=== PATIENT | female | born 1955 | race Caucasian/White ===

== ENCOUNTER 2017-01-23 14:20 | Inpatient (IN) | payer OTHER ==
[~2017-01-23] VITALS: Ht 157.5 cm; Wt 51.3 kg
--- NOTE | 2017-01-23 14:27 | NUR ---
PT PLACED TO RM 5
--- NOTE | 2017-01-23 14:27 | NUR ---
PT SIB DR DING FOR N/V, FEELING TIRED AND WEAK. PT STATES SHE HAS BEEN IN BED SINCE LAST FRIDAY. BP IN TRIAGE 81/56
--- NOTE | 2017-01-23 14:46 | ED GENERAL ADULT ---
History of Present Illness General Chief Complaint: General Adult Stated Complaint: LOW BP Source: patient Exam Limitations: no limitations Allergies Coded Allergies: No Known Allergies (01/23/17) Reconcile Medications Acetaminophen (Mapap) (Unknown Strength) CAPSULE (Unknown Dose) PO ONCE PAIN (Reported) Atorvastatin Calcium 20 MG TABLET 1 TAB PO DAILY CHOLESTEROL (Reported) Lisinopril/Hydrochlorothiazide (Lisinopril-Hctz 10-12.5 MG Tab) 10 MG-12.5 MG TABLET 1 TAB PO DAILY BP (Reported) Triage Note: PT SIB DR DING FOR N/V, FEELING TIRED AND WEAK. PT STATES SHE HAS BEEN IN BED SINCE LAST FRIDAY. BP IN TRIAGE 81/56 Triage Nurses Notes Reviewed? yes Onset: Gradual Duration: getting worse Timing: recent history Injury Environment: home Severity: severe Severity Numbers: 9 No Modifying Factors: none HPI: Patient is a 61-year-old female with past medical history of hypertension who presents to emergency with a 10 day history of generalized weakness and fatigue and not feeling well and low energy. Patient states an last 7 days she's had 2 episodes of bilious emesis however nothing in the past 2 days. Last bowel movement was within the last 24 hours no blood no melena noted. Patient denies any fevers chills chest pain and arm pain jaw pain current nausea or vomiting, abdominal pain vaginal bleeding or vaginal discharge hematuria or dysuria. Denies any leg swelling hemoptysis, cough shortness of breath here patient does state she gets lightheaded upon getting up and mild physical exertion. Patient states last colonoscopy was within last 10 years no acute findings. (NESSA ALEJANDRO,ANGIE) Vital Signs & Intake/Output Vital Signs & Intake/Output Vital Signs Date Time Temp Pulse Resp B/P Pulse O2 O2 Flow FiO2 Ox Delivery Rate 01/23 1913 97.0 80 18 105/59 99 Room Air 01/23 1900 78 102/62 01/23 1850 80 110/57 01/23 1820 96.9 82 18 110/58 98 Room Air 01/23 1755 98.7 74 16 95/51 94 Room Air 01/23 1710 97.3 70 18 88/58 99 Room Air 01/23 1633 74 18 83/56 99 Room Air 01/23 1601 97.0 68 18 84/48 96 Nasal Cannula 01/23 1531 74 84/57 03/30 1506 94 Room Air 01/23 1505 97.1 76 20 89/53 94 Room Air 01/23 1455 78 72/60 01/23 1425 97.0 110 20 81/56 90 Room Air Past History Travel History Traveled to [place] past 21 day No Medical History Any Pertinent Medical History? see below for history Cardiovascular: hypertension, hyperlipidemia Surgical History Surgical History: non-contributory Psychosocial History What is your primary language Angolan Tobacco Use: Quit >30 days ago ETOH Use: occasional use Illicit Drug Use: denies illicit drug use Family History Hx Contributory? No (ANGIE REYNOLDS) Review of Systems Review of Systems Constitutional: Reports: see HPI, malaise, weakness. EENTM: Reports: no symptoms. Respiratory: Reports: no symptoms. Cardiovascular: Reports: no symptoms. GI: Reports: see HPI. Genitourinary: Reports: no symptoms. Musculoskeletal: Reports: no symptoms. Skin: Reports: no symptoms. Neurological/Psychological: Reports: no symptoms. Hematologic/Endocrine: Reports: no symptoms. Immunologic/Allergic: Reports: no symptoms. All Other Systems: Reviewed and Negative (ANGIE REYNOLDS) Physical Exam Physical Exam General Appearance: no apparent distress, alert, comfortable Rectal: normal exam, normal rectal tone, heme negative stool Comments: Well-developed well-nourished person in no acute distress HEENT: Normal EENT exam, extraocular motion intact, no nystagmus. Pupils equally round and reactive to light and accommodation. Nose is atraumatic. External auditory canal and Tympanic membranes clear. Pharynx normal. No swelling or edema. Neck: Supple, no lymphadenopathy, normal range of motion without pain or tenderness Back: Nontender, no CVA tenderness. Cardiovascular: Regular rate and rhythms no murmurs rubs or gallops, normal JVP Respiratory: Chest nontender. No respiratory distress.breath sounds clear to auscultation bilaterally Abdomen: Soft, nontender nondistended, no appreciable organomegaly. Normal bowel sounds. No ascites Extremity: No edema, no calf tenderness to palpation, normal and equal pulses. Neuro: Alert oriented x3, motor sensory normal, Skin: No appreciable rash on exposed skin, skin is warm and dry. Psych: Mood and affect is normal, memory and judgment is normal. Core Measures ACS in differential dx? No CVA/TIA Diagnosis: No Severe Sepsis Present: No Septic Shock Present: No (ANGIE REYNOLDS) Progress Differential Diagnoses I considered the following diagnoses in my evaluation of the patient: [Cancer, anemia, GI bleed, hypotension, dehydration,RENAL ARTERY STENOSIS, CINDA, ] Diagnostic Imaging: Viewed by Me: Radiology Read, CT Scan. Radiology Impression: no acute abnormality, no fracture Initial ED EK BPM NORMAL SINUS RHYTHM Comments: PATIENT: KIANA HOANG PRESENT AGE: 61 PATIENT ACCOUNT NO: [id number] : 53 LOCATION: ER ORDERING PHYSICIAN: ANGIE ALEJANDRO SERVICE DATE: 01/23/17153 EXAM TYPE: US - US-RENAL/KIDNEY EXAMINATION: US RETROPERITONEAL COMPLETE (RENAL) CLINICAL INFORMATION: Renal failure. COMPARISON: CT from today TECHNIQUE: Real-time imaging of the kidneys and bladder. FINDINGS: RIGHT KIDNEY: 9.1 x 5 x 4.3 cm (SAG x AP x TRV). The kidney is normal in size, contour, and echogenicity. Renal cortical thickness is normal. No calculi or focal parenchymal lesions. No hydronephrosis. LEFT KIDNEY: 9.7 x 5.1 x 4.7 cm (SAG x AP x TRV). The kidney is normal in size, contour, and echogenicity. Renal cortical thickness is normal. No calculi or focal parenchymal lesions. No hydronephrosis. BLADDER: Partially distended. Bilateral ureteral jets are demonstrated. Prevoid bladder volume is 62 mL. IMPRESSION: Unremarkable appearance of the kidneys.. DICTATED BY: DAVID HENRY,KESHA DATE/TIME DICTATED:01/23/171744 FIRE CLAIMS ADJUSTER:GEOFF PATIENT: KIANA HOANG PRESENT AGE: 61 PATIENT ACCOUNT NO: [id number] : 53 LOCATION: [facility] ORDERING PHYSICIAN: ANGIE ALEJANDRO SERVICE DATE: 01/23/17160 EXAM TYPE: CAT - CT ABD & PELVIS W/O IV CONTRAS EXAMINATION: CT ABDOMEN AND PELVIS WITHOUT CONTRAST CLINICAL INFORMATION: Decreased urine output. Acute kidney insufficiency and hypertension. COMPARISON: None TECHNIQUE: Multidetector volumetric imaging was performed from the superior aspect of the liver through the pubic symphysis. Sagittal and coronal reformatted images were obtained on the technologist's workstation. DLP: 239.65 mGy-cm FINDINGS: LUNG BASES: Small, 0.3 cm noncalcified nodule within the left lower lobe (image 16, series 3). LIVER, GALLBLADDER, AND BILIARY TREE: Unremarkable. PANCREAS: Unremarkable. SPLEEN: Unremarkable. ADRENAL GLANDS: Unremarkable. KIDNEYS AND URETERS: Kidneys have normal size, cortical thickness and attenuation. No nephrolithiasis or hydroureteronephrosis. BLADDER: Urinary bladder is nearly completely empty. No evidence of bladder wall thickening or bladder calculus. GASTROINTESTINAL TRACT: Stomach is unremarkable. Loops of bowel are normal in caliber. Incidentally noted is submucosal fat deposition within the colon; this can represent normal variation and does not necessarily indicate remote inflammatory bowel disease. No ascites or pneumoperitoneum. ABDOMINAL WALL: Small, fat-containing umbilical hernia measures 1 cm wide. LYMPH NODES: No pathologic sized lymph nodes within the abdomen or pelvis. VASCULAR: Abdominal aorta is normal in caliber. PELVIC VISCERA: A well-circumscribed 4.3 x 4.5 x 4.7 cm structure of fat attenuation of the left ovary (dermoid cyst) is noted. No pelvic free fluid. OSSEOUS STRUCTURES: Mild levocurvature of the lumbar spine. The visualized lower thoracic and lumbar vertebra have normal height and alignment. No suspicious bone lesions. IMPRESSION: 1. No evidence of urolithiasis or urinary tract obstruction. 2. There is a 4.3 x 4.5 x 4.7 cm dermoid cyst of the left ovary. 3. Small, 0.3 cm nodule within the left lower lobe. Based on updated Fleischner Society guidelines, chest CT follow-up is not required for a low risk patient and, also, is not typically recommended for nodules of this size in a high risk patient. (NESSA ALEJANDRO,ANGIE) Plan of Care: Orders Procedure Date/time Status BASIC ELECTROLYTES PLUS BUN&CR 01/24 0000 Active LACTIC ACID 01/23 2010 Active Pathway - chart 01/23 1857 Active Patient Data 01/23 1855 Active Admit to inpatient 01/23 1852 Active Pathway - chart 01/23 1848 Active CIWA 01/23 1848 Active Pathway - chart 01/23 1823 Active House Staff 01/23 1823 Active Patient Data 01/23 1823 Active Code Status 01/23 182 Active LACTIC ACID 01/23 1710 Complete Add-on Test (ER Only) 01/23 1610 Active URINE LYTES, SPOT 01/23 1539 Complete URINALYSIS 01/23 1539 Complete EKG 01/23 1504 Active ARTERIAL BLOOD GAS (GEN) 01/23 1502 Active Add-on Test (ER Only) 01/23 1502 Active FingerStick- Glucose 01/23 1454 Active Intake & Output 01/23 1453 Active LIPASE 01/23 1450 Complete LACTIC ACID 01/23 1450 Complete AMYLASE 01/23 1450 Complete COMPREHENSIVE METABOLIC PANEL 01/23 1442 Complete CBC WITHOUT DIFFERENTIAL 01/23 1442 Complete VTE Mechanical Prophylaxis 01/23 UNK Active Current Medications Sig/Tiffany Start time Last Medication Dose Stop Time Status Admin Heparin Sodium 5,000 UNIT Q8 01/23 2200 AC (Porcine) Acetaminophen 650 MG Q6P PRN 01/23 190 AC (Tylenol) Lorazepam 1 MG Q2P PRN 01/23 1900 AC (Ativan) Oxycodone HCl 10 MG Q6P PRN 01/23 190 AC (Roxicodone) Oxycodone/ 1 TAB Q6P PRN 01/23 190 AC Acetaminophen (Percocet) Folic Acid 1 MG DAILY 01/23 184 AC (Folic Acid) 01/25 1001 Multivitamins 1 TAB DAILY 01/23 184 AC (Theragran Vitamins) Thiamine HCl 100 MG DAILY 01/23 184 AC (Vitamin B1) 01/25 1001 Atorvastatin Calcium 20 MG 1700 01/23 184 AC (Lipitor) Laboratory Tests 01/23/17 1800: Lactic Acid 2.1 01/23/171756: Urine Color YEL, Urine Clarity CLDY H, Urine pH 6.0, Ur Specific [place] 1.015, Urine Protein 30 H, Urine Ketones NEG, Urine Nitrite NEG, Urine Bilirubin NEG@ ICTO, Urine Urobilinogen 0.2, Ur Leukocyte Esterase LARGE H, Ur Microscopic SEDIMENT EXAMINED, Urine RBC RARE, Urine WBC 50-75 H, Ur Epithelial Cells MOD H, Urine Bacteria MOD H, Urine Hemoglobin SMALL H, Urine Glucose NEG 01/23/17 1757: Ur Random Creatinine 174.7, Ur Random Sodium 50, Ur Random Potassium 13.8, Fraction Sodium Excret 2.8 H 01/23/17 1545: pH 7.31 L, pCO2 21 L, pO2 126 H, HCO3 10 L, ABG O2 Sat (Measured) 97.0, P-50 (Temp Corrected) N, Carboxyhemoglobin 0.2 L, O2 Concentration % R/A, Temperature 97.1, Phlebotomy Draw Site LEFT RADIAL 01/23/17 1450: Anion Gap 35 H, Estimated GFR 3 L, BUN/Creatinine Ratio 9.4, Glucose 170 H, Lactic Acid 4.8 H, Calcium 10.9 H, Total Bilirubin 0.7, AST 22, ALT 31, Alkaline Phosphatase 90, Total Protein 9.1 H, Albumin 5.1 H, Globulin 4.0, Albumin/Globulin Ratio 1.3, Amylase 92, Lipase 508 H, CBC w Diff NO MAN DIFF REQ, RBC 4.82, MCV 94.0, MCH 31.5 H, RDW 12.5, MPV 9.2, Gran % 80.5 H, Lymphocytes % 11.1 L, Monocytes % 6.6, Eosinophils % 1.2, Basophils % 0.6, Absolute Granulocytes 6.2, Absolute Lymphocytes 0.8 L, Absolute Monocytes 0.5, Absolute Eosinophils 0.1, Absolute Basophils 0, PUBS MCHC 33.5 Patient initially was in no apparent distress however showed concerns of hypotension initially which 2 peripheral lines were accessed for IV administration of fluid resuscitation which patient did have improvement of hypotension. Patient does have critical findings of acute kidney injury which in which nephrology was paged. Patient had unremarkable CT scan finding and renal ultrasound finding however patient did have lactic acidosis however with IV fluid resuscitation patient's repeat lactic acid was improved. Discuss critical findings with patient who agrees with disposition and plan of being admitted for concerns of acute renal failure (ANGIE REYNOLDS) Departure Departure Disposition: STILL A PATIENT Condition: Critical Clinical Impression Primary Impression: CINDA (acute kidney injury) Secondary Impressions: Dehydration, Hypotension, Lactic acidosis Referrals: CLARENCE STOKES MD (PCP/Family) Departure Forms: Customer Survey General Discharge Information Admission Note Spoke With: LUCINA JOYCE MD Documentation of Exam: Documentation of any treatments & extenuating circumstances including Concerns Regarding Discharge (functional status, medication knowledge or non-compliance, living conditions, etc.) that warrant an admission rather than observation: [ Discussed patient with Dr. JOYCE who agrees with admission for concerns of acute kidney injury lactic acidosis and hypotension. Patient requires IV fluid resuscitation, FLUID IN/OUTS, repeat labs nephrology consultation and further evaluation treatment of critical findings. Outpatient treatment at this time would be medically harmful.] (ANGIE REYNOLDS) PA/CLUTCH OPERATOR Co-Sign Statement Statement: ED Attending supervision documentation- [X] I saw and evaluated the patient. I have also reviewed all the pertinent lab results and diagnostic results. I agree with the findings and the plan of care as documented in the PA's/CLUTCH OPERATOR's documentation. [] I have reviewed the ED Record and agree with the PA's/CLUTCH OPERATOR's documentation. [] Additions or exceptions (if any) to the PAs/CLUTCH OPERATOR's note and plan are summarized below: [] (RUBY HENRY,YAMILA Bolden) Critical Care Note Critical Care Note Critical Care Time: 30-74 min (ANGIE REYNOLDS)
--- NOTE | 2017-01-23 14:56 | NUR ---
PT TO ROOM, BP 72/60 HR 78, 2 IV LINES PLACED AND 1 LITER NS INFUSING WIDE OPEN PER ORDER, PT COMPLAINS OF 10 DAYS OF FEELING VERY WEAK, VOMITTED X 2 IN THE 10 DAYS AND STATES THAT IT WAS ALL BILE , DENIES EVER HAVING ABD PAIN AND DENIES AT THIS TIME. PT GUIAC NEGATIVE, LAST BM THIS AM AND LOOSE, DENIES BLOOD IN STOOL. BP 90/53 AT THIS TIME. O2 SAT 92 % ON RA DENIES SOB/CP, NSR ON MONITOR. PT UNABLE TO VOID AT THIS TIME AND STATES THAT SHE HAS ONLY BEENVOIDING ABOUT 1 TIME A DAY THE PAST FEW DAYS DUE TO NO APPETITE AND NOT DRINKING FLUIDS WELL. PT STATES THAT SHE DID TAKE HER BP MED THIS AM, BUT DID NOT TAKE YESTERDAY DUE TO SHE WAS NOT FEELING WELL. DENIES DIZZINESS WITH CHANGE OF POSITION AND STATES THAT SHE ONLY FEELS WEAK. PT WENT TO HER PMD THIS AM AND HE WAS THE ONE THAT TOLD HER TO COME TO ER
[2017-01-23 15:06] LABS: ABSOLUTE BASOPHIL COUNT 0 /CUMM (0.0-0.2); ABSOLUTE EOSINOPHIL COUNT 0.1 /CUMM (0.0-0.7); ABSOLUTE GRANULOCYTE CT 6.2 /CUMM (1.4-6.5); ABSOLUTE LYMPH COUNT 0.8 /CUMM (1.2-3.4); ABSOLUTE MONOCYTE COUNT 0.5 /CUMM (0.10-0.60); BASOPHIL % 0.6 % (0.0-2.0); EOSINOPHIL % 1.2 % (0-5); GRANULOCYTE % 80.5 % (42.2-75.2); HEMATOCRIT 45.3 % (37-47); MEAN CORPUSCULAR HGB 31.5 PG (27.0-31.0); MEAN CORPUSCULAR HGB CONC 33.5 G/DL (33.0-37.0); MEAN PLATELET VOLUME 9.2 FL (7.4-10.4); PLATELET COUNT 373 /CUMM (130-400); RBC DISTRIBUTION WIDTH 12.5 % (11.5-14.5); RED BLOOD CELL CT 4.82 /CUMM (4.20-5.40); WHITE BLOOD CELL COUNT 7.7 /CUMM (4.8-10.8)
--- NOTE | 2017-01-23 15:11 | NUR ---
RESP CALLED FOR ABG
--- NOTE | 2017-01-23 15:32 | NUR ---
BP 84/57 AT THIS TIME, 1ST LITER OF FLUIDS FINISHED INFUSING, PT PROVIDED WITH WARM BLANKETS BY SUSAN ABRAHAM FOR COMPLAINTS OF FEELING COLD.
--- NOTE | 2017-01-23 15:37 | NUR ---
CRITICAL TEST RESULTS [id number] KIANA HOANG 61 F TESTS AND RESULTS: BUN 121 CREATNINE 12.9 Results received and read back by: TIFFANY TAVERAS Results received date and time: 01/23/17 1538 The following provider was notified of the results, and read the results back: NESSA Wilhelm Notified date and time: 01/23/17 at 1538
--- NOTE | 2017-01-23 15:43 | NUR ---
RESP AT BEDSIDE TO OBTAIN ABG
--- NOTE | 2017-01-23 15:56 | NUR ---
PT UNABLE TO VOID AT THIS TIME
--- NOTE | 2017-01-23 16:03 | NUR ---
PT REMAINS PAIN FREE , BP 84/48 NSR ON MONITOR HR 74, PA AT BEDSIDE, 2ND LITER CHANGED FROM 150 ML/HR TO WIDE OPEN AND 3RD LITER INFUSING BOLUS TO LAC.
--- NOTE | 2017-01-23 16:16 | NUR ---
PT TO CT SCAN VIA STRETCHER
--- NOTE | 2017-01-23 16:46 | CT SCAN REPORT ---
EXAMINATION: CT ABDOMEN AND PELVIS WITHOUT CONTRAST CLINICAL INFORMATION: Decreased urine output. Acute kidney insufficiency and hypertension. COMPARISON: None TECHNIQUE: Multidetector volumetric imaging was performed from the superior aspect of the liver through the pubic symphysis. Sagittal and coronal reformatted images were obtained on the technologist's workstation. DLP: 239.65 mGy-cm FINDINGS: LUNG BASES: Small, 0.3 cm noncalcified nodule within the left lower lobe (image 16, series 3). LIVER, GALLBLADDER, AND BILIARY TREE: Unremarkable. PANCREAS: Unremarkable. SPLEEN: Unremarkable. ADRENAL GLANDS: Unremarkable. KIDNEYS AND URETERS: Kidneys have normal size, cortical thickness and attenuation. No nephrolithiasis or hydroureteronephrosis. BLADDER: Urinary bladder is nearly completely empty. No evidence of bladder wall thickening or bladder calculus. GASTROINTESTINAL TRACT: Stomach is unremarkable. Loops of bowel are normal in caliber. Incidentally noted is submucosal fat deposition within the colon; this can represent normal variation and does not necessarily indicate remote inflammatory bowel disease. No ascites or pneumoperitoneum. ABDOMINAL WALL: Small, fat-containing umbilical hernia measures 1 cm wide. LYMPH NODES: No pathologic sized lymph nodes within the abdomen or pelvis. VASCULAR: Abdominal aorta is normal in caliber. PELVIC VISCERA: A well-circumscribed 4.3 x 4.5 x 4.7 cm structure of fat attenuation of the left ovary (dermoid cyst) is noted. No pelvic free fluid. OSSEOUS STRUCTURES: Mild levocurvature of the lumbar spine. The visualized lower thoracic and lumbar vertebra have normal height and alignment. No suspicious bone lesions. IMPRESSION: 1. No evidence of urolithiasis or urinary tract obstruction. 2. There is a 4.3 x 4.5 x 4.7 cm dermoid cyst of the left ovary. 3. Small, 0.3 cm nodule within the left lower lobe. Based on updated Fleischner Society guidelines, chest CT follow-up is not required for a low risk patient and, also, is not typically recommended for nodules of this size in a high risk patient.
--- NOTE | 2017-01-23 16:47 | NUR ---
CRITICAL TEST RESULTS [id number] KIANA HOANG 61 F TESTS AND RESULTS: LACTIC ACID 4.8 Results received and read back by: TIFFANY TAVERAS Results received date and time: 01/23/17 6057 The following provider was notified of the results, and read the results back: Melonie ALEJANDRO Notified date and time: 01/23/17 at 2089
--- NOTE | 2017-01-23 17:25 | NUR ---
4TH LITER NS BOLUS INFUSING AT THIS TIME PER ORDER. PT REFUSES AGARWAL AT THIS TIME BUT STATES THAT SHE WANTS TO TRY TO VOID ON COMMODE WITH HAT IN PLACE SO THAT WE CAN MEASURE HER OUT PUT. PT TO US AT THIS TIME
--- NOTE | 2017-01-23 17:48 | NUR ---
PT RETURNED FROM US AND IS TRYING TO VOID ON COMMODE
--- NOTE | 2017-01-23 17:49 | ULTRASOUND REPORT ---
EXAMINATION: US RETROPERITONEAL COMPLETE (RENAL) CLINICAL INFORMATION: Renal failure. COMPARISON: CT from today TECHNIQUE: Real-time imaging of the kidneys and bladder. FINDINGS: RIGHT KIDNEY: 9.1 x 5 x 4.3 cm (SAG x AP x TRV). The kidney is normal in size, contour, and echogenicity. Renal cortical thickness is normal. No calculi or focal parenchymal lesions. No hydronephrosis. LEFT KIDNEY: 9.7 x 5.1 x 4.7 cm (SAG x AP x TRV). The kidney is normal in size, contour, and echogenicity. Renal cortical thickness is normal. No calculi or focal parenchymal lesions. No hydronephrosis. BLADDER: Partially distended. Bilateral ureteral jets are demonstrated. Prevoid bladder volume is 62 mL. IMPRESSION: Unremarkable appearance of the kidneys..
--- NOTE | 2017-01-23 17:54 | NUR ---
PT ABLE TO VOID 100 ML OF CLOUDY YELLOW URINE AFTER 4LITERS OF NS. DENIES ANY BURNING OR PRESSURE WITH VOIDING.
--- NOTE | 2017-01-23 18:21 | NUR ---
BP 110/58 AT THIS TIME . PT REMAINS ALERT AND ORIENTED AT THIS TIME, DENIES PAIN. PT STILL STATES THAT SHE "DOES NOT WANT AGARWAL CATHETER" PA AWARE THAT PT REFUSES AT THIS TIME.
--- NOTE | 2017-01-23 18:24 | NUR ---
REPEAT LACTIC SENT AT THIS TIME
--- NOTE | 2017-01-23 18:24 | NUR ---
HOUSE STAFF AT BEDSIDE
[2017-01-23] MEDS ORDERED: ATORVASTATIN CA20 M1 PO (18:30)
[2017-01-23] MEDS ORDERED: LISINOPRIL-HCT1 EAC2 PO (18:30)
[2017-01-23] MEDS ORDERED: MAPAP500 M2 PO (18:31)
--- NOTE | 2017-01-23 18:52 | History & Physical ---
JODI HENRY,[facility] 01/23/17 4272: General Information and HPI MD Statement: I have seen and personally examined KIANA HOANG and documented this H&P. The patient is a 61 year old F who presented with a patient stated chief complaint of nausea, vomiting. Source of Information: patient Exam Limitations: no limitations History of Present Illness: This is a 61-year-old female with past medical history of hypertension and hyperlipidemia, presented with chief complaint of nausea, vomiting and fatigue. Patient she was in her usual state of health 10 days ago, after which she started having low appetite,fatigue, nausea, vomiting, and interfering in her body. As per patient couple of days ago she had 2 episodes of bilious vomiting, which is upright and had no repeat episodes ever since. Denies any hematemesis. She states that she has not been eating or drinking secondary to no appetite for the past 10 days She denies any fever, chills, shortness of breath, cough, chest pain, palpitation, headache, repeat episodes of nausea or vomiting, abdominal pain, melena, urinary symptoms, any changes in bowel movements. She denies any sick contacts, eating anything unusual, any travels. She is ex-smoker, drinks alcohol, but denies any fatalities. Denies any recent Hospitalization including ICU admissions, she did not usually see her primary care physician only when she really needs to. She lives by herself, denies any services at home. She is able to do her daily chores by herself having difficulty. She follows as her PCP. Allergies/Medications Allergies: Coded Allergies: No Known Allergies (01/23/17) Home Med list Acetaminophen (Mapap) (Unknown Strength) CAPSULE (Unknown Dose) PO ONCE PAIN (Reported) Atorvastatin Calcium 20 MG TABLET 1 TAB PO DAILY CHOLESTEROL (Reported) Lisinopril/Hydrochlorothiazide (Lisinopril-Hctz 10-12.5 MG Tab) 10 MG-12.5 MG TABLET 1 TAB PO DAILY BP (Reported) Compliance With Home Meds: GOOD Past History Travel History Traveled to [place] past 21 day No Medical History Blood Transfusion Hx: No Cardiovascular: hypertension, hyperlipidemia Respiratory: NONE Gastrointestinal: NONE Hepatic: NONE Renal: NONE Musculoskeletal: NONE Psychiatric: NONE Endocrine: adrenal insufficiency Blood Disorders: NONE Surgical History Surgical History: non-contributory Past Family/Social History Family History Relations & Conditions if any Relation not specified for: *No pertinent family history Psychosocial History Where do you live? Home Who Do You Live With? self Services at Home: None Primary Language: Icelandic Smoking Status: Former Smoker ETOH Use: occasional use Illicit Drug Use: denies illicit drug use Functional Ability ADLs Independent: dressing, eating, toileting, bathing. Ambulation: independent IADLs Independent: shopping, housework, finances, food prep, telephone, transportation , medication admin. Review of Systems Review of Systems Constitutional: Reports: see HPI. Exam & Diagnostic Data Last 24 Hrs of Vital Signs/I&O Vital Signs Date Time Temp Pulse Resp B/P Pulse O2 O2 Flow FiO2 Ox Delivery Rate 01/23 1850 80 110/57 01/23 1820 96.9 82 18 110/58 98 Room Air 01/23 1755 98.7 74 16 95/51 94 Room Air 01/23 1710 97.3 70 18 88/58 99 Room Air 01/23 1633 74 18 83/56 99 Room Air 01/23 1601 97.0 68 18 84/48 96 Nasal Cannula 01/23 1531 74 84/57 01/23 1506 94 Room Air 01/23 1505 97.1 76 20 89/53 94 Room Air 01/23 1455 78 72/60 01/23 1425 97.0 110 20 81/56 90 Room Air Intake & Output 01/23 1600 01/23 0800 01/23 0000 Intake Total 1000 Output Total Balance 1000 Intake, IV 1000 Patient 47.174 kg Weight Physical Exam General Appearance Alert, Oriented X3, Cooperative, No Acute Distress Cardiovascular Regular Rate, Normal S1, Normal S2, No Murmurs Lungs Clear to Auscultation, Normal Air Movement Abdomen Normal Bowel Sounds, Soft, No Tenderness Extremities No Clubbing, No Cyanosis, No Edema Last 24 Hrs of Labs/Haris: Laboratory Tests 01/23/17 1800: Lactic Acid Pending 01/23/17 1757: Urine Color YEL, Urine Clarity CLDY H, Urine pH 6.0, Ur Specific [place] 1.015, Urine Protein 30 H, Urine Ketones NEG, Urine Nitrite NEG, Urine Bilirubin NEG@ ICTO, Urine Urobilinogen 0.2, Ur Leukocyte Esterase LARGE H, Ur Microscopic SEDIMENT EXAMINED, Urine RBC RARE, Urine WBC 50-75 H, Ur Epithelial Cells MOD H, Urine Bacteria MOD H, Urine Hemoglobin SMALL H, Urine Glucose NEG 01/23/17 1757: Ur Random Creatinine 174.7, Ur Random Sodium 50, Ur Random Potassium 13.8, Fraction Sodium Excret 2.8 H 01/23/17 1545: pH 7.31 L, pCO2 21 L, pO2 126 H, HCO3 10 L, ABG O2 Sat (Measured) 97.0, P-50 (Temp Corrected) N, Carboxyhemoglobin 0.2 L, O2 Concentration % R/A, Temperature 97.1, Phlebotomy Draw Site LEFT RADIAL 01/23/17 1450: Anion Gap 35 H, Estimated GFR 3 L, BUN/Creatinine Ratio 9.4, Glucose 170 H, Lactic Acid 4.8 H, Calcium 10.9 H, Total Bilirubin 0.7, AST 22, ALT 31, Alkaline Phosphatase 90, Total Protein 9.1 H, Albumin 5.1 H, Globulin 4.0, Albumin/Globulin Ratio 1.3, Amylase 92, Lipase 508 H, CBC w Diff NO MAN DIFF REQ, RBC 4.82, MCV 94.0, MCH 31.5 H, RDW 12.5, MPV 9.2, Gran % 80.5 H, Lymphocytes % 11.1 L, Monocytes % 6.6, Eosinophils % 1.2, Basophils % 0.6, Absolute Granulocytes 6.2, Absolute Lymphocytes 0.8 L, Absolute Monocytes 0.5, Absolute Eosinophils 0.1, Absolute Basophils 0, PUBS MCHC 33.5 Diagnostic Data Other Results Abdominal CT 1. No evidence of urolithiasis or urinary tract obstruction. 2. There is a 4.3 x 4.5 x 4.7 cm dermoid cyst of the left ovary. 3. Small, 0.3 cm nodule within the left lower lobe. Based on updated Fleischner Society guidelines, chest CT follow-up is not required for a low risk patient and, also, is not typically recommended for nodules of this size in a high risk patient. Assessment/Plan Assessment: This is a 61-year-old female with past medical history of hypertension and hyperlipidemia, presented with chief complaint of nausea, vomiting and fatigue. Vitals upon presentation, temperature 90.7, pulse 110, respiratory rate 20, blood pressure 81/56, satting around 90% on room air. Pertinent labs H&H 15.2 and 45.3, sodium 134, potassium 3.9, BUN 121, creatinine 12.9 ABGs upon presentation 7.31/// Renal ultrasound did not show any evidence of urinary obstruction Abdominal CT not show any acute findings, but showed evidence of edematous of the left ovary, and a small 0.3 cm nodule within the left lower lobe Patient to be admitted and monitored for the following conditions; Acute kidney injury: -Creatinine on presentation 12.9, baseline 0.8 in December 2013 -Likely prerenal secondary to dehydration secondary to decreased by mouth intake , urine random creatinine, sodium, potassium, fraction sodium excretion pending -Renal ultrasound did not show any evidence of any obstruction or urolithiasis. -She was hypertensive upon presentation, received 4 L of normal saline which improved her blood pressure, will continue hydrating the patient and monitor repeat labs. - Avoid nephrotoxic drugs History of hypertension: Lisinopril on hold secondary to hypotension and acute kidney injury History of hyperlipidemia: Statins on hold. CT findings of left lower lobe nodule on chest CT : Small, 0.3 cm nodule within the left lower lobe. Based on updated Fleischner Society guidelines, chest CT follow-up is not required for a low risk patient and, also, is not typically recommended for nodules of this size in a high risk patient. Patient will be informed regarding this finding. DVT prophylaxis: Subcutaneous heparin Diet : As tolerated low fat diet Patient is full code As Ranked By This Provider Problem List: 1. Acute kidney injury Core Measures/Miscellaneous Acute Coronary Syndrome ACS Diagnosis: No Cerebrovascular Accident CVA/TIA Diagnosis: No Congestive Heart Failure CHF Diagnosis: No Venous Thromboembolism VTE Risk Factors: Acute medical illness, Age > 40, Sm[facility] prophylaxis d/t: No contraindications No VTE Pharm Prophylaxis d/t: No contraindications VTE Diagnosis: No VTE Type: NONE VTE Confirmed by (Test): NONE Septic Shock Septic Shock Present: No Miscellaneous Documentation Attending Case Discussed With: LUCINA JOYCE MD Primary Care Physician: CLARENCE STOKES MD Patient sees these Specialists . Level of Patient Care: Critical Care (CRI) MARVEL OLSEN 01/23/171922: Core Measures/Miscellaneous Severe Sepsis Severe Sepsis Present: No Resident Review Statement Resident Statement: examined this patient, discussed with internal control consultant, agreed with internal control consultant, discussed with family, reviewed EMR data (avail), discussed with nursing , discussed with case mgmt, reviewed images, amended to note Other Findings: 61-year-old woman presented at the emergency room complaining of worsening fatigue and low energy. She was at her normal state of health up until 10 days ago when she started feeling weak. At her baseline she is a very active individual however for the past 10 days due to her low energy she remained mostly at bed she denies any contact with sick person, fever, chills, shortness of breath. During this period she felt nauseous twice and vomited twice which was mostly food with no blood. Today she became concerned about her prolonged peak and opted to visit the emergency room. In the emergency room she was found to be hypotensive down to 72/60. She was restarted on IV fluids. Blood pressure eventually started normalizing. Patient is a former smoker quit 26 years ago and lives alone/ independence/ for the past 10 days had a very poor oral intake. Medication: Reconciled Social history: Former smoker, EtOH moderate use on a daily basis only wine last drink on Friday/denies [id number] and illicit drugs Family history noncontributory Review of system: Complains of fatigue Vital signs: 105/59 pulse 92 room air saturation 98 Physical exam: There's and oriented 3 not in acute distress , Mucous membranes are relatively moist; heart and Lungs within normal limits Orthostatic negative, abdomen soft, extremities no edema, skin turgor normal. Pertinent data: BUN 121 creatinine 12.9 initial lactic acid 4.8 follow-up 2.1 Lipase 508 amylase 92 WBC 7.7 no left shift or bandemia, hemoglobin 15.2, hematocrit 45.3 List of problems Acute renal failure due to dehydration * Continue IV hydration with normal saline * Repeat BEP at midnight History of hypertension and presented with hypotension due to dehydration * Lisinopril was held EtOH use and elevated lipase * Start thiamine multivitamin and folic acid * Check CIBA every 2 * CIWA scored triggers by mouth Ativan 1 mg DVT prophylaxis * Heparin 5000 U Q8 pain pathway. LUCINA JOYCE 01/23/17 7286: Attending MD Review Statement Attending Statement Attending MD Statement: examined this patient, discuss w/resident/PA/WOOD LATHE OPERATOR, agreed w/resident/PA/WOOD LATHE OPERATOR, reviewed EMR data (avail), reviewed images, amended to note Attending Assessment/Plan: CC: sent by PCP for low BP PMH: HTN, HLD Patient comes to ER from PCP office for 10 day history of generalized weakness, fatigue, not feeling well, low energy, almost bedbound. Her blood pressure was low in PCP office systolic and 80s. Patient is poor historian but after detailed history she admits weak abdominal pain approximately 10 days back, associated with nausea, approximately 2-3 days back she had 2-3 elements of vomiting, 2 times watery bowel movements every day, nonbloody. She sees the last 2 days she barely has any urine output, has been taking her blood pressure medications on and off all this while. She endorses drinking 1 case of wine per week, ex-smoker , ?NSAID use. Vitals at presentation afebrile, pulse 110, blood pressure 81/56 dropped to 72/ 60, persistently so for more than 3 hours, improved with IV fluids up to 110/58, tachycardia improved, saturating well on room air. On exam: A O 3, cooperative, no acute distress, neck supple, no JVD, no lymphadenopathy, mucosa dry, no focal neurological deficit, no dependent edema, no obvious skin rashes or inflammation CVS: S1-S2, RRR. RS: Clear to auscultate bilaterally. Abdomen: Soft, NT, ND, bowel sounds present. Labs: CVC unremarkable, BUN 121, creatinine 12.9, last available values are in 2013 which were normal. On and 34, lactate 4.8, albumin 5.1, lipase 508. ABG: PH 7.31/21/106/10 on room air. FeNa: 2.8 Renal ultrasound: Unremarkable appearance of kidneys. CT abdomen and pelvis without IV contrast: 1. No evidence of urolithiasis or urinary tract obstruction. 2. There is a 4.3 x 4.5 x 4.7 cm dermoid cyst of the left ovary. 3. Small, 0.3 cm nodule within the left lower lobe. A and p #1 acute kidney injury: Baseline creatinine not known but creatinine of 12.5 with BUN of 121 is significantly high, along with that patient has mixed acidosis with anion gap and metabolic alkalosis. FeNa is 2.8, in last for our patient has urine output of 200. Patient appears to be in oliguric renal failure , volume contraction leading to ATN. Patient had some nausea, vomiting and diarrhea, may have caused hypovolemia and was taking lisinopril and HCTZ combination with that. Patient's lipase is mildly elevated to 508, abdominal CT does not show any pancreatic abnormality, patient endorses some acute abdominal pain few days back associated with nausea vomiting, mild pancreatitis may be contributing at that time. Check CRP, IV MS at 150 mL per hour after 4 L bolus, strict I's and O's, nephrologic consult in a.m., repeat BMP at midnight, continuous telemetry monitoring, watch for potassium abnormalities and acidosis. Hold lisinopril and HCTZ. #2 hypotension: Probably secondary to volume contraction, blood pressure improving with IV hydration, patient will benefit from ICU admission overnight for the same. Otherwise ROS negative no indication of infection. #3 lactic acidosis secondary to hypotension, continue IV hydration as mentioned, trend lactate. #4 significant alcohol history: At this time continue Ativan per CIWA protocol, according to dosing may need scheduled Ativan, high-dose thiamine for today, folic acid. #5 DVT prophylaxis with heparin.
--- NOTE | 2017-01-23 19:14 | NUR ---
5TH LITER NS INFUSING VIA PUMP AT 150 ML /HR. PT CONTINUES TO DENIE PAIN, BP 105/59 AT THIS TIME. FS 108
--- NOTE | 2017-01-23 19:16 | NUR ---
CRITICAL TEST RESULTS [id number] KIANA HOANG 61 F TESTS AND RESULTS: LACTIC ACID 2.1 Results received and read back by: TIFFANY TAVERAS Results received date and time: 01/23/171915 The following provider was notified of the results, and read the results back: ANGIE ALEJANDRO Notified date and time: 01/23/17 at 1916
--- NOTE | 2017-01-23 19:24 | NUR ---
PHARMACY CALLED FOR MEDICATIONS
--- NOTE | 2017-01-23 20:21 | NUR ---
REPORT GIVEN TO SHWETA BISHOP
[2017-01-23 22:00] VITALS: BP 99/48
--- NOTE | 2017-01-23 23:31 | Admission Certification ---
Admission Certification Certification Statement - As attending physician, I certify that at the time of - admission, based on clinical presentation, severity of - symptoms, need for further diagnostic testing and - therapeutic interventions, and risk of adverse outcomes - without in-hospital treatment, in my clinical assessment, - this patient requires an acute hospital stay for a minimum - of two nights or longer. I have also considered psychsocial - factors such as support system, advanced age, financial - issues, cognitive issues, and failed out-patient treatments, - past re-admission history, safety of patient, and lack of - compliance as applicable. Specific rationale supporting this admission is: Acute kidney injury, hypotension, lactic acidosis
[2017-01-24] VITALS (9 sets, daily range): BP systolic 90–114; BP diastolic 48–54
--- NOTE | 2017-01-24 | NUR ---
PT UP FROM ER. A/Ox3, COOPERATIVE WITH ALL CARE. PT VSS, SEE FLOW SHEET. PT RECIEVING NS @ 150 MLS/HR. LABS DRAWN AND RESULTS REPORTED. PT ON RA, LUNGS CLEAR. COCCYX RED (STAGE ONE) WITH SOME EXCORIATION NOTED. PT PLACED ON MONITOR. ASSISTED OOB TO BSC WITH NO DIFFICULTY AMBULTING. PT REPORTS NO NAUSEA OR VOMITING, DIET ORDERED. CALL LIGHT EXPLAINED AND SAFETY REINFORCED AND PT VERBALIZES UNDERSTANDING. PT BP HIGHER MANUALLY, BP IN THE 80S WHEN LYING ON HER SIDE. PT HAS LIGHTHEADNESS OR DIZZINESS.
[2017-01-24 05:39] LABS: ABSOLUTE BASOPHIL COUNT 0 /CUMM (0.0-0.2); ABSOLUTE EOSINOPHIL COUNT 0.1 /CUMM (0.0-0.7); ABSOLUTE GRANULOCYTE CT 4.7 /CUMM (1.4-6.5); ABSOLUTE LYMPH COUNT 0.8 /CUMM (1.2-3.4); ABSOLUTE MONOCYTE COUNT 0.5 /CUMM (0.10-0.60); BASOPHIL % 0.4 % (0.0-2.0); EOSINOPHIL % 2.1 % (0-5); GRANULOCYTE % 76.6 % (42.2-75.2); MEAN CORPUSCULAR HGB 32.2 PG (27.0-31.0); MEAN CORPUSCULAR HGB CONC 34.2 G/DL (33.0-37.0); MEAN CORPUSCULAR VOLUME 94.1 FL (81.0-99.0); MEAN PLATELET VOLUME 8.9 FL (7.4-10.4); PLATELET COUNT 270 /CUMM (130-400); WHITE BLOOD CELL COUNT 6.2 /CUMM (4.8-10.8)
[2017-01-24 05:51] LABS: RED BLOOD CELL CT 3.12 /CUMM (4.20-5.40)
[2017-01-24 05:52] LABS: HEMATOCRIT 29.3 % (37-47)
--- NOTE | 2017-01-24 06:51 | Cons- CRCU ---
PARKER CALDERON 01/24/17 0651: General Information and HPI Consulting Request Date of Consult: 01/24/17 Requested By: DR JOYCE Reason for Consult: cinda Source of Information: patient Exam Limitations: no limitations History of Present Illness: This is 61-year-old female with past medical history of hypertension, hyperlipidemia, relatively healthy with no other past medical history came in with chief complaint of nausea, vomiting and worsening fatigue with low appetite and not feeling herself. She noted that the couple of days ago she had 2 episodes of bilious vomiting, after that she did not have any other issues. However she continued to feel not herself and that's why she came in to [facility]. She does note that she has had decreased urine output in last few days and she has not been eating and drinking well secondary to loss of appetite. She denied any fever, chills, shortness of breath, cough, chest pain, palpitation, headache, any urinary obstruction, any history of kidney stones, vomiting. she also denied any sick contacts and the unusual travel. She was a prior smoker shock, she drinks occasional alcohol. She does note that she was recently started on thiazide and lisinopril for management of her hypertension. It was also noted that she had been recently taking some [id number] NSAIDs for her chronic pain. Allergies/Medications Allergies: Coded Allergies: No Known Allergies (01/23/17) Home Med List: Acetaminophen (Mapap) (Unknown Strength) CAPSULE (Unknown Dose) PO ONCE PAIN (Reported) Atorvastatin Calcium 20 MG TABLET 1 TAB PO DAILY CHOLESTEROL (Reported) Magnesium Chloride (Slow-Mag) 71.5 MG TABLET. 1 TAB PO DAILY SUPPLEMENT Past History Travel History Traveled to [place] past 21 day No Medical History Blood Transfusion Hx: No Neurological: NONE EENT: NONE Cardiovascular: hypertension, hyperlipidemia Respiratory: NONE Gastrointestinal: NONE Hepatic: NONE Renal: NONE Musculoskeletal: NONE Psychiatric: NONE Endocrine: adrenal insufficiency Blood Disorders: NONE Cancer(s): NONE FINANCIAL SERVICE PROFESSIONAL/Reproductive: NONE Surgical History Surgical History: non-contributory Family History Relations & Conditions If Any: Relation not specified for: *No pertinent family history Psychosocial History Where Do You Live? Home Who Do You Live With? self Services at Home: None Primary Language: Yoruba Smoking Status: Former Smoker ETOH Use: occasional use Illicit Drug Use: denies illicit drug use Functional Ability ADLs Independent: dressing, eating, toileting, bathing. Ambulation: independent IADLs Independent: shopping, housework, finances, food prep, telephone, transportation , medication admin. Assessment/Plan Impression/Plan: This is a 61-year-old woman presented at the emergency room complaining of worsening fatigue and low energy. She was at her normal state of health up until 10 days ago when she started feeling weak and nauseous twice and vomited twice which was mostly food with no blood. In the emergency room she was found to be hypotensive down to 72/60. She was restarted on IV fluids. Blood pressure eventually started normalizing. Patient is a former smoker quit 26 years ago and lives alone/ independence/ for the past 10 days had a very poor oral intake. Vital signs at ER on admission : 105/59 pulse 92 room air saturation 98 Pertinent data on admission : BUN 121 creatinine 12.9 ( no known kidney dysfunction) initial lactic acid 4.8 follow-up 2.1 Lipase 508 amylase 92 WBC 7.7 no left shift or bandemia, hemoglobin 15.2, hematocrit 45.3 Problem list alongwith assesment and plan Acute renal failure due to dehydration * Most likely 2/2 to dehydration : prerenal Cinda, in addition patient endorses h/ o decreased UO, not drinking much + recently started new meds of lisinopril + also endorses h/o nsaid comsumption - combination of all could have aggressively worsening CINDA. * Continue IV hydration with normal saline * Will check CK to r/o Rhabdomyolysis * Ct to monitor kidney functions and electrolytes. * continue to monitor UO closely. * Hold lisinorpil. * Hold statins * avoid all nehprotoxin * avoid nsaids. * Nehpro consult placed for today, Dr koch to see the patient. History of hypertension and presented with hypotension due to dehydration * Lisinopril was held * Continue to monitor BP closely. EtOH use and elevated lipase * CT thiamine multivitamin and folic acid * Continue CIWA for now, if scores low, will dc * CIWA scored triggers by mouth Ativan 1 mg Metabolic acidosis * Lactic acdi trending down. * Most likely 2/2 to renal failure as most likely cause. * Will add bicardbonate to fluids untill bicarb > 18, can switch to d5w then. Left lower lobe lung nodule. * 3mm nodule LLL * Follow as OP. DVT prophylaxis:Heparin 5000 U Q8 pain pathway. FC Problem List: 1. Acute kidney injury 2. Lactic acidosis 3. Hypotension 4. Dehydration Consult Acknowledgment - Thank you for your consult request. MT MELÉNDEZ MD 01/24/17 1233: Exam & Diagnostic Data Last 24 Hrs of Vital Signs/I&O Vital Signs Date Time Temp Pulse Resp B/P Pulse O2 O2 Flow FiO2 Ox Delivery Rate 01/26 1508 98.2 92 20 140/72 96 Last 48 Hrs of Labs/Haris: Laboratory Tests 01/26/17 0700: Anion Gap 4 L, Estimated GFR > 60, BUN/Creatinine Ratio 28.8 H, Phosphorus 1.9 L, Magnesium 1.2 L 01/25/17 1817: Anion Gap 10, Estimated GFR > 60, BUN/Creatinine Ratio 35.6 H Assessment/Plan Other Findings/Comments: Mt Holt M.D. have examined this patient, reviewed available EMR data, personally reviewed images, discussed with resident/PA/HOSPICE CONSULTANT, discussed management plan with housestaff and nursing staff, discussed managment plan all of healthcare providers, discussed management plan with patient and/or family, agreed with resident/PA/HOSPICE CONSULTANT. The past history and parts of the chart have been autopopulated. Impression 61 year old woman * acute kidney injury - most likely secondary to prerenal azotemia - diuretic use and poor po intake * metabolic acidosis - renal failure as most likely cause/lactic acidosis * 3mm nodule LLL - no follow up necessary at this itme Plan - nephrology consultation appreciated - hemodynamic monitoring - bp has been stable - sodium bicarbonate to goal of >18 then change to saline for hydration - bid labs - if remains hemodynamically stable can DG to gen med - DVT prophylaxis at all times TTS 40 min Consult Acknowledgment - Thank you for your consult request.
--- NOTE | 2017-01-24 12:18 | Cons- Nephrology ---
General Information and HPI Consulting Request Date of Consult: 01/24/17 Requested By: MAYO MELÉNDEZ MD Reason for Consult: CINDA, acidosis Source of Information: patient Exam Limitations: no limitations History of Present Illness: The patient is a 61-year-old female with a 10 year history of hypertension, for which she is on lisinopril hydrochlorothiazide, who is had 10 days of weakness and poor by mouth intake, and 2 days of nausea and vomiting. For these reasons she presented to the hospital where she was found to be in severe acute renal failure with a creatinine of 12.9 and BUN of 121 with severe hypotension with a blood pressure as low as 72/60, associated with the lactic acidosis and acidemia. Should she did not have a fever or leukocytosis however does have pyuria and urinalysis. She was aggressively volume resuscitated and renal functions nicely improving with a creatinine that decreased within 24 hours to 6.0. She remains acidotic however is awake and alert blood pressure has improved with IV fluids to 100 systolic. She is nonoliguric. She took 2 doses of ibuprofen a couple days ago for neck ache. She also continued to take her blood pressure medications despite her recent symptoms. Of note her sister, who has , had a history of end-stage renal disease and was on dialysis and underwent renal transplantation, from a living donor (brother). Non-con CT scan revealed no acute process, with no hydronephrosis on CT scan or renal ultrasound. Allergies/Medications Allergies: Coded Allergies: No Known Allergies (01/23/17) Home Med List: Acetaminophen (Mapap) (Unknown Strength) CAPSULE (Unknown Dose) PO ONCE PAIN (Reported) Atorvastatin Calcium 20 MG TABLET 1 TAB PO DAILY CHOLESTEROL (Reported) Lisinopril/Hydrochlorothiazide (Lisinopril-Hctz 10-12.5 MG Tab) 10 MG-12.5 MG TABLET 1 TAB PO DAILY BP (Reported) Current Medications: Current Medications Sig/Tiffany Start time Last Medication Dose Route Stop Time Status Admin Acetaminophen 650 MG Q6P PRN 01/23 1900 AC PO Atorvastatin Calcium 20 MG 1700 01/23 1845 DC 01/23 PO 1944 Folic Acid 1 MG DAILY 01/23 1848 AC 01/24 PO 01/25 1001 0911 Heparin Sodium 5,000 UNIT Q8 01/23 2200 AC 01/24 (Porcine) SC 0629 Lorazepam 1 MG Q2P PRN 01/23 1900 AC PO Magnesium Oxide 400 MG BID 01/24 1000 AC 01/24 PO 01/24 2201 0911 Multivitamins 1 TAB DAILY 01/23 1848 AC 01/24 PO 0911 Oxycodone HCl 10 MG Q6P PRN 01/23 1900 AC PO Oxycodone/ 1 TAB Q6P PRN 01/23 1900 AC Acetaminophen PO Potassium Chloride 10 MEQ Q1H 01/24 0130 DC 01/24 IV 01/24 0231 0256 Sodium Bicarbonate 150 MEQ Q6H 01/24 1200 AC Dextrose/Water 1,000 ML IV Sodium Chloride 1,000 ML Q6H 01/23 1900 DC 01/24 IV 0911 Sodium Chloride 1,000 ML BOLUS ONE 01/23 1715 DC 01/23 IV 01/23 1814 1724 Sodium Chloride 1,000 ML BOLUS ONE 01/23 1615 DC 01/23 IV 01/23 1714 1615 Sodium Chloride 1,000 ML BOLUS ONE 01/23 1515 DC 01/23 IV 01/23 1614 1511 Sodium Chloride 1,000 ML ONCE ONE 01/23 1515 DC 01/23 IV 01/23 2154 1511 Thiamine HCl 100 MG DAILY 01/23 1848 AC 01/24 PO 01/25 1001 0912 Review of Systems Review of Systems: Gen: neg fever, chills, nightsweats, wt loss +weakness Skin: neg rash, pruritus Eye: neg visual changes, diplopia ENT: neg hearing changes, rhinitus CV: neg CP, SOB, MONET, PND, orthopnea Pulm: neg cough, sputum, hemoptysis GI: + nausea, +vomiting, no diarrhea, mild abd pain resolved : neg dysuria, frequency, urgency, hematuria, foamy urine, nocturia Musculoskeletal: neg myalgias, arthralgias Neuro: neg focal weakness, numbness Psych: neg depression, mental status changes Heme: neg bruising, easy bleeding, clots Past History Travel History Traveled to [place] past 21 day No Medical History Blood Transfusion Hx: No Neurological: NONE EENT: NONE Cardiovascular: hypertension, hyperlipidemia Respiratory: NONE Gastrointestinal: NONE Hepatic: NONE Renal: NONE Musculoskeletal: NONE Psychiatric: NONE Endocrine: adrenal insufficiency Blood Disorders: NONE Cancer(s): NONE 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 Home Who Do You Live With? self Services at Home: None Primary Language: Panamanian Smoking Status: Former Smoker ETOH Use: occasional use Illicit Drug Use: denies illicit drug use Functional Ability ADLs Independent: dressing, eating, toileting, bathing. Ambulation: independent IADLs Independent: shopping, housework, finances, food prep, telephone, transportation , medication admin. Exam & Diagnostic Data Vital Signs and I&O Vital Signs Date Time Temp Pulse Resp B/P Pulse O2 O2 Flow FiO2 Ox Delivery Rate 01/24 0800 97.6 70 20 98/50 97 Room Air 01/24 0600 76 18 90/52 01/24 0430 98 Room Air 01/24 0400 98.4 76 22 104/54 01/24 0200 72 18 98/50 01/24 0000 97.6 70 14 102/54 01/24 0000 95 Room Air 01/24 0000 97.6 70 14 102/54 96 Room Air 01/23 2200 97.8 70 24 99/48 01/23 2200 96 Room Air 01/23 1949 110/60 01/23 1913 97.0 80 18 105/59 99 Room Air 01/23 1900 78 102/62 01/23 1850 80 110/57 01/23 1820 96.9 82 18 110/58 98 Room Air 01/23 1755 98.7 74 16 95/51 94 Room Air 01/23 1710 97.3 70 18 88/58 99 Room Air 01/23 1633 74 18 83/56 99 Room Air 01/23 1601 97.0 68 18 84/48 96 Nasal Cannula 01/23 1531 74 84/57 01/23 1506 94 Room Air 01/23 1505 97.1 76 20 89/53 94 Room Air 01/23 1455 78 72/60 01/23 1425 97.0 110 20 81/56 90 Room Air Intake & Output 01/24 1600 01/24 0400 01/23 1600 01/23 0400 01/22 1600 01/22 0400 Intake Total 1070 3450 1000 Output Total 1000 575 Balance 70 2875 1000 Intake, IV 950 3450 1000 Intake, Oral 120 Number 0 0 Bowel Movements Output, Urine 1000 575 Patient 113 lb 104 lb Weight Physical Exam: General: NAD, A+O x3. HEENT: NC/AT. No icterus. mucosa dry Neck: negative for DEIRDRE, JVD CV: RRR, no m/r/g Pulm: CTAB, no rales Abd: soft, NT/ND, negative renal bruits Lower Ext: neg edema or chronic venous changes Upper Ext: no AVFs or AVGs Back: negative for CVA tenderness Neuro: neg tremor, asterixis Skin: no rash, jaundice : no centeno catheter Results Pertinent Lab Results: Laboratory Tests 01/24 01/24 01/23 0450 0000 2305 Chemistry Sodium (137 - 145 mmol/L) 139 Cancelled Potassium (3.5 - 5.1 mmol/L) 3.7 Cancelled Chloride (98 - 107 mmol/L) 115 H Cancelled Carbon Dioxide (22 - 30 mmol/L) 10 L Cancelled Anion Gap (5 - 16) 15 Cancelled BUN (7 - 17 mg/dL) 86 H Cancelled Creatinine (0.5 - 1.0 mg/dL) 6.0 *H Cancelled Estimated GFR (>60 ml/min) 7 L BUN/Creatinine Ratio Cancelled Glucose (65 - 99 mg/dL) 70 Lactic Acid (0.7 - 2.1 mmol/L) 0.6 L Calcium (8.4 - 10.2 mg/dL) 7.6 L Phosphorus (2.5 - 4.5 mg/dL) 6.2 H Magnesium (1.6 - 2.3 mg/dL) 1.6 Total Bilirubin (0.2 - 1.3 mg/dL) 0.3 AST (14 - 36 U/L) 13 L ALT (9 - 52 U/L) 30 Creatine Kinase (30 - 135 U/L) 85 Albumin (3.5 - 5.0 g/dL) 2.7 L Hematology CBC w Diff NO MAN DIFF REQ WBC (4.8 - 10.8 /CUMM) 6.2 RBC (4.20 - 5.40 /CUMM) 3.12 L Hgb (12.0 - 16.0 G/DL) 10.0 L Hct (37 - 47 %) 29.3 L MCV (81.0 - 99.0 FL) 94.1 MCH (27.0 - 31.0 PG) 32.2 H RDW (11.5 - 14.5 %) 12.0 Plt Count (130 - 400 /CUMM) 270 MPV (7.4 - 10.4 FL) 8.9 Gran % (42.2 - 75.2 %) 76.6 H Lymphocytes % (20.5 - 51.1 %) 12.5 L Monocytes % (1.7 - 9.3 %) 8.4 Eosinophils % (0 - 5 %) 2.1 Basophils % (0.0 - 2.0 %) 0.4 Absolute Granulocytes (1.4 - 6.5 /CUMM) 4.7 Absolute Lymphocytes (1.2 - 3.4 /CUMM) 0.8 L Absolute Monocytes (0.10 - 0.60 /CUMM) 0.5 Absolute Eosinophils (0.0 - 0.7 /CUMM) 0.1 Absolute Basophils (0.0 - 0.2 /CUMM) 0 PUBS MCHC (33.0 - 37.0 G/DL) 34.2 01/23 01/23 01/23 2305 2305 1800 Chemistry Sodium (137 - 145 mmol/L) 135 L Potassium (3.5 - 5.1 mmol/L) 3.3 L Chloride (98 - 107 mmol/L) 110 H Carbon Dioxide (22 - 30 mmol/L) 10 L Anion Gap (5 - 16) 15 BUN (7 - 17 mg/dL) 93 H Creatinine (0.5 - 1.0 mg/dL) 7.9 *H Estimated GFR (>60 ml/min) 5 L Glucose (65 - 99 mg/dL) 79 Lactic Acid (0.7 - 2.1 mmol/L) 2.1 Calcium (8.4 - 10.2 mg/dL) 7.6 L Phosphorus (2.5 - 4.5 mg/dL) 7.4 H Magnesium (1.6 - 2.3 mg/dL) 1.6 Total Bilirubin (0.2 - 1.3 mg/dL) 0.3 AST (14 - 36 U/L) 11 L ALT (9 - 52 U/L) 32 C-React Prot High Sens (1.0 - 3.0 mg/L) > 15.0 H Albumin (3.5 - 5.0 g/dL) 2.7 L 01/23 01/23 01/23 1757 1757 1545 Blood Gas pH (7.35 - 7.45 PH) 7.31 L pCO2 (35 - 45 TORR) 21 L pO2 (80 - 100 TORR) 126 H HCO3 (21 - 28 MEQ/L) 10 L ABG O2 Sat (Measured) (>96.0 %) 97.0 P-50 (Temp Corrected) N Carboxyhemoglobin (1.5 - 5.0 %) 0.2 L O2 Concentration % R/A Temperature (97.0 - 100.0 FARH) 97.1 Miscellaneous Phlebotomy Draw Site LEFT RADIAL Urines Urine Color (YEL,AMB,STR) YEL Urine Clarity (CLEAR) CLDY H Urine pH (5.0 - 8.0) 6.0 Ur Specific [place] (1.001 - 1.035) 1.015 Urine Protein (NEG,<30 MG/DL) 30 H Urine Ketones (NEG) NEG Urine Nitrite (NEG) NEG Urine Bilirubin (NEG) NEG@ICTO Urine Urobilinogen (0.1 - 1.0 EU/dl) 0.2 Ur Leukocyte Esterase (NEG) LARGE H Ur Microscopic SEDIMENT EXAMINED Urine RBC (0 - 5 /HPF) RARE Urine WBC (0 - 2 /HPF) 50-75 H Ur Epithelial Cells (NONE,FEW) MOD H Urine Bacteria (NEG/NONE) MOD H Urine Hemoglobin (NEG) SMALL H Ur Random Creatinine (mg/dL) 174.7 Ur Random Sodium (30 - 90 mmol/L) 50 Ur Random Potassium (mmol/L) 13.8 Fraction Sodium Excret (<1% %) 2.8 H Urine Glucose (N MG/DL) NEG 01/23 1450 Chemistry Sodium (137 - 145 mmol/L) 134 L Potassium (3.5 - 5.1 mmol/L) 3.9 Chloride (98 - 107 mmol/L) 88 L Carbon Dioxide (22 - 30 mmol/L) 11 L Anion Gap (5 - 16) 35 H BUN (7 - 17 mg/dL) 121 *H Creatinine (0.5 - 1.0 mg/dL) 12.9 *H Estimated GFR (>60 ml/min) 3 L BUN/Creatinine Ratio (7 - 25 %) 9.4 Glucose (65 - 99 mg/dL) 170 H Lactic Acid (0.7 - 2.1 mmol/L) 4.8 H Calcium (8.4 - 10.2 mg/dL) 10.9 H Total Bilirubin (0.2 - 1.3 mg/dL) 0.7 AST (14 - 36 U/L) 22 ALT (9 - 52 U/L) 31 Alkaline Phosphatase (<127 U/L) 90 Total Protein (6.3 - 8.2 g/dL) 9.1 H Albumin (3.5 - 5.0 g/dL) 5.1 H Globulin (1.9 - 4.2 gm/dL) 4.0 Albumin/Globulin Ratio (1.1 - 2.2 %) 1.3 Amylase (30 - 110 U/L) 92 Lipase (23 - 300 U/L) 508 H Hematology CBC w Diff NO MAN DIFF REQ WBC (4.8 - 10.8 /CUMM) 7.7 RBC (4.20 - 5.40 /CUMM) 4.82 Hgb (12.0 - 16.0 G/DL) 15.2 Hct (37 - 47 %) 45.3 MCV (81.0 - 99.0 FL) 94.0 MCH (27.0 - 31.0 PG) 31.5 H RDW (11.5 - 14.5 %) 12.5 Plt Count (130 - 400 /CUMM) 373 MPV (7.4 - 10.4 FL) 9.2 Gran % (42.2 - 75.2 %) 80.5 H Lymphocytes % (20.5 - 51.1 %) 11.1 L Monocytes % (1.7 - 9.3 %) 6.6 Eosinophils % (0 - 5 %) 1.2 Basophils % (0.0 - 2.0 %) 0.6 Absolute Granulocytes (1.4 - 6.5 /CUMM) 6.2 Absolute Lymphocytes (1.2 - 3.4 /CUMM) 0.8 L Absolute Monocytes (0.10 - 0.60 /CUMM) 0.5 Absolute Eosinophils (0.0 - 0.7 /CUMM) 0.1 Absolute Basophils (0.0 - 0.2 /CUMM) 0 PUBS MCHC (33.0 - 37.0 G/DL) 33.5 Assessment/Plan Assessment/Recommendations Assessment: Acute kidney injury: I suspect prerenal azotemia due to profound volume depletion in the setting of hypotension and vomiting, exacerbated by diuretic use, and exacerbated by medications that will decrease intraocular pressure ( NSAIDs will decrease afferrent grlomerular pressure by decreasing prostaglandin production, in the JOSE inhibitor will decrease efferent glomerular pressure via its mechanism). She was hemoconcentrated on admission and also had an elevated albumin both consistent with volume depletion. The patient's been nicely aggressively hydrated with improved renal status and downtrending creatinine consistent with prerenal azotemia. Urinalysis revealed no significant proteinuria or hematuria. The pyuria needs to be further evaluated for urinary tract infection despite lack of obvious symptoms, and we'll check a repeat UA with urine culture. Agree with holding her JOSE inhibitor and diuretic, and continuing isotonic fluids. Metabolic acidosis: This is an elevated anion gap metabolic acidosis which I suspect is multifactorial and secondary to lactic acidosis as well as renal failure. The anion gap is improving however the acidosis is persistent and may in part be due to the administration of large volume saline. Would change IV fluids to D5W with 150 MEQ's per liter of sodium bicarbonate until her serum bicarbonate level is increased 18. History of alcohol abuse: She drinks about a box of wine per week, which is equivalent of 4 bottles of wine per week and at least 3 glasses of wine per day. She was counseled to decrease her alcohol intake. Recommendations: Change IV fluids to D5W with 3 amps of sodium bicarbonate at 150 mL per hour. Once serum bicarbonate level is up to 18 or higher would change back to normal saline Twice a day labs Hold JOSE inhibitor/Hctz; once renal function normalizes this agent can be presumed however consideration should be given to changing to a less potentially nephrotoxic antihypertensive such as amlodipine Add on an cortisol. The patient knows of no history of adrenal insufficiency however someone listed adrenal insufficiency and her past medical history and this should be further evaluated and clarified. Thank you for the consultation Nitin Matias M.D.
--- NOTE | 2017-01-24 23:25 | NUR ---
PT HAD MULTIPLE ORDERS FOR MAGNESIUM AND POTASSIUM (IV AND PO). PT REQUESTED THAT WE ONLY GIVE HER PO POTASSIUM THE IV IS PAINFUL FOR HER. MD RODRIGUEZ MADE AWARE. CLARIFICATION OF ALL ORDERS WAS PROVIDED. PT WAS TO RECEIVE 40 mEq OF POTASSIUM TABLETS X 3 DOSES (EACH DOSE ONE HOUR APART) AND TWO DOSES OF 400 MG OF MAGNESIUM (ALSO ONE HOUR APART). PT MEDICATED PER MD REQUEST. WILL CONTINUE TO CLOSELY MONITOR.
[2017-01-25] VITALS: BP 114/52
[2017-01-25 07:01] VITALS: BP 98/40
--- NOTE | 2017-01-25 09:10 | PN- Housestaff ---
MAGGIE HENRY,PATRICK 01/25/17 0910: Subjective Follow-up For: Acute kidney injury Subjective: Patient is seen and examined at bedside. He does not endorse any acute complaints including fevers, chills, nausea, vomiting, abdominal pain, chest pain, palpitation, dizziness or altered mental status. No acute overnight event reported by nursing staff. Review of Systems Constitutional: Reports: no symptoms. Objective Last 24 Hrs of Vital Signs/I&O Vital Signs Date Time Temp Pulse Resp B/P Pulse O2 O2 Flow FiO2 Ox Delivery Rate 01/25 0701 98.0 65 20 98/40 98 Room Air 01/25 0000 99.0 67 20 114/52 01/24 2210 99.0 67 20 114/52 96 Room Air 01/24 2200 99.0 67 20 114/52 01/24 1830 98.7 67 18 100/48 97 Room Air 01/24 1600 98.9 110 26 90/50 01/24 1600 97.8 74 20 90/50 98 Room Air Intake & Output 01/25 1600 01/25 0800 01/25 0000 Intake Total 1440 1560 Output Total 250 Balance 1440 1310 Intake, IV 1200 1200 Intake, Oral 240 360 Number 2 Bowel Movements Output, Urine 250 Physical Exam General Appearance: Alert, Oriented X3, Cooperative Assessment/Plan Assessment: This is a 61-year-old female with a past medical history of of hypertension treated with hydrochlorothiazide and lisinopril is found to have acute renal failure in the setting of 10 day history of increased weakness with vomiting, diarrhea and poor oral intake. Patient presented with creatinine of 12.9 and BUN of 121, metabolic acidosis with bicarbonate of 10 with borderline hypotension. Status post aggressive hydration with appropriate correction of BP. Patient was also started on D5 with 3 amp of bicarbonate with a marked improvement of bicarb level. Patient was initially admitted to ICU and then transferred on January 24 to [facility]. Assessment and plan #CINDA Most likely secondary to prerenal AZOTEMIA as noted by history of patient having poor fluid intake coupled with diarrhea and vomiting. Laboratory findings also support prerenal azotemia with elevated BUN/creatinine ratio, hemoconcentration and albumin level. Patient creatinine level has rapidly improved with aggressive hydration. Will continue to hold off JOSE inhibitor in the setting of CINDA and hypotension. #Metabolic acidosis Presented as anion gap metabolic acidosis. Most likely secondary to elevated lactic acid in the setting of hypotension and also a component of renal failure. Bicarbonate levels are improving but still low, status post bicarbonate administration. Due to persistent low BP levels will still maintain normal saline even though this coud precipitate the metabolic acidosis with hyperchloremia. We'll therefore decrease normal saline rate from 150 to 100ml/ hr and will recheck BEP at 6 PM and will consider switching based on BEP results and BP readings. #Electrolyte derangements Most likely secondary to kidney injury. Hypomagnesemia, hypokalemia, hypophosphatemia. We'll continue to replenish and trend BEP and electrolyte. Problem List: 1. Acute kidney injury Pain Ratin Pain Location: None Pain Goal: Remain pain free Pain Plan: pain pathway Tomorrow's Labs & Rationales: BEP-Cinda metabolic acidosis CAYETANO RODRIGUEZ MD 01/25/17 1553: Attending MD Review Statement Attending Statement Attending MD Statement: examined this patient, discuss w/resident/PA/MANAGER TECHNICAL TRAINING, agreed w/resident/PA/MANAGER TECHNICAL TRAINING, reviewed EMR data (avail) Attending Assessment/Plan: 61F admitted with acute renal failure secondary to dehydration from viral gastroenteritis and diuretics. Initially BUN 121 and creatinine 12, now down to near normal. Good urine output. No complaints. Switched from D5 1/2NS with bicarb drip to normal saline. Labs improving. Plan - Continue IV hydration - Monitor renal function - Follow nephrology recommendations - Continue home medications, continue to hold diuretics - DVT PPx
[2017-01-25 14:34] VITALS: BP 109/60
[2017-01-25 20:00] VITALS: BP 109/60
[2017-01-25 21:57] VITALS: BP 118/62
[2017-01-25 22:00] VITALS: BP 118/62
[2017-01-26] VITALS: BP 118/62
[2017-01-26 02:00] VITALS: BP 118/62
[2017-01-26 04:00] VITALS: BP 118/60
[2017-01-26 06:00] VITALS: BP 118/62
[2017-01-26 07:27] VITALS: BP 120/70
--- NOTE | 2017-01-26 10:29 | PN- Housestaff ---
MIKE HENRY,PAWAN 01/26/17 1029: Subjective Follow-up For: Acute kidney injury Complaints: no complaints Subjective: Patient is comfortable, doesn't have any complaints, vitals stable, no overnight issues. Review of Systems Constitutional: Reports: no symptoms. EENTM: Reports: no symptoms. Cardiovascular: Reports: no symptoms. Respiratory: Reports: no symptoms. Gastrointestinal: Reports: no symptoms. Genitourinary: Reports: no symptoms. Musculoskeletal: Reports: no symptoms. Skin: Reports: no symptoms. Neurological/Psychological: Reports: no symptoms. Hematologic/Endocrine: Reports: no symptoms. Objective Last 24 Hrs of Vital Signs/I&O Vital Signs Date Time Temp Pulse Resp B/P Pulse O2 O2 Flow FiO2 Ox Delivery Rate 01/26 1508 98.2 92 20 140/72 96 01/26 0727 98.0 66 20 120/70 94 01/26 0600 98.6 70 18 118/62 01/26 0400 98.6 70 18 118/60 01/26 0200 98.6 70 18 118/62 / 0000 98.6 70 18 118/62 01/25 2200 98.6 70 18 118/62 01/25 2157 98.6 70 20 118/62 96 Room Air Intake & Output 01/26 1600 02 0800 01/26 0000 Intake Total 1400 800 450 Output Total Balance 1400 800 450 Intake, IV 800 800 450 Intake, Oral 600 Number 2 Bowel Movements Physical Exam General Appearance: Alert, Oriented X3, Cooperative, No Acute Distress HEENT: Atraumatic, PERRLA, EOMI, Mucous Membr. moist/pink Cardiovascular: Regular Rate, Normal S1, Normal S2 Lungs: Clear to Auscultation Abdomen: Normal Bowel Sounds, Soft, No Tenderness Neurological: grossly intact Current Medications: Current Medications Sig/Tiffany Start time Last Medication Dose Route Stop Time Status Admin Acetaminophen 650 MG Q6P PRN 01/23 1900 DCD PO Heparin Sodium 5,000 UNIT Q8 01/23 2200 DCD 01/26 (Porcine) SC 1356 Lorazepam 1 MG Q2P PRN 01/23 1900 DCD PO Magnesium Oxide 400 MG ONE ONE 01/26 1400 DC 01/26 PO 01/26 1401 1357 Multivitamins 1 TAB DAILY 01/23 1848 DCD 01/26 PO 0826 Oxycodone HCl 10 MG Q6P PRN 01/23 1900 DCD PO Oxycodone/ 1 TAB Q6P PRN 01/23 1900 DCD Acetaminophen PO Phosphate 250 MG PC AND AT BEDTIME 01/25 0900 DCD 01/26 PO 1357 Sodium Chloride 1,000 ML Q6H 01/24 2030 DCD 01/26 IV 0826 Last 24 Hrs of Lab/Haris Results Last 24 Hrs of Labs/Mics: Laboratory Tests 01/26/17 0700: Anion Gap 4 L, Estimated GFR > 60, BUN/Creatinine Ratio 28.8 H, Phosphorus 1.9 L, Magnesium 1.2 L Assessment/Plan Assessment: This is a 61-year-old female with a past medical history of of hypertension treated with hydrochlorothiazide and lisinopril is found to have acute renal failure in the setting of 10 day history of increased weakness with vomiting, diarrhea and poor oral intake. Patient presented with creatinine of 12.9 and BUN of 121, metabolic acidosis with bicarbonate of 10 with borderline hypotension. Status post aggressive hydration with appropriate correction of BP. Patient was also started on D5 with 3 amp of bicarbonate with a marked improvement of bicarb level. Patient was initially admitted to ICU and then transferred on January 24 to [facility]. Assessment and plan #CINDA Most likely secondary to prerenal AZOTEMIA as noted by history of patient having poor fluid intake coupled with diarrhea and vomiting. Laboratory findings also support prerenal azotemia with elevated BUN/creatinine ratio, hemoconcentration and albumin level. Patient creatinine level has rapidly improved with aggressive hydration. Will continue to hold off JOSE inhibitor in the setting of CINDA and hypotension. -Patient improved with IV fluids and is already doing better, with improved renal function today. -Patient can be safely discharged today, however we are not prescribing any antihypertensive medication upon discharge as her blood pressure is well within normal limits without any medication. She needs to regularly check her blood pressure and follow-up with her primary care physician within one week of her discharge. This has been conveyed to the patient and she agrees to the plan. #Metabolic acidosis Presented as anion gap metabolic acidosis. Most likely secondary to elevated lactic acid in the setting of hypotension and also a component of renal failure. Already better, so IV fluids were discontinued today. #Electrolyte derangements Most likely secondary to kidney injury. Hypomagnesemia, hypokalemia, hypophosphatemia. We'll continue to replenish and trend BEP and electrolyte. Sodium 141, potassium 3.9, magnesium 1.2, phosphorus 1.9 today She requires magnesium supplement upon discharge Regular diet Heparin subcutaneous for DVT prophylaxis Full CODE STATUS Problem List: 1. Acute kidney injury 2. Dehydration Pain Ratin Pain Location: - Pain Goal: Remain pain free Pain Plan: prn Tomorrow's Labs & Rationales: - JENNIFER HENRYHEMANTRASHID 01/26/17 1458: Attending MD Review Statement Attending Statement Attending MD Statement: examined this patient, discuss w/resident/PA/AGRICULTURE MANAGER, agreed w/resident/PA/AGRICULTURE MANAGER, reviewed EMR data (avail) Attending Assessment/Plan: Patient feels back to her baseline. She is eating and drinking well, with normal urine output and normal bowel movements. She is asmyptomatic and has no complaints. Creatinine is down to 0.8, potassium and sodium normal, normal bicarb level. Magnesium is still decreased to 1.2 and has been repleted today. Vitals stable. Plan - Patient is stable for discharge home - Will start Slo-mag daily - Discontinue all BP meds at this time as BP has been well controlled on no medications - Follow up with PCP regarding starting of BP meds, per neprhology may benefit from a non-renal anti-hypertensive such as Amlodipine - May continue statin
[2017-01-26] MEDS ORDERED: SLOW-MAG71.5 MG PO (13:52)
--- NOTE | 2017-01-26 14:01 | Patient Discharge Instructions ---
Discharge Instructions General Discharge Information You were seen/treated for: Acute kidney injury (CINDA) Hypokalemia, Hypomagnesemia, Hypophosphetemia Metabolic acidosis Special Instructions: Please stop all medications for BLOOD PRESSURE ONLY for now. Have your blood pressure checked regularly and visit your primary care physician within a week. You may be restarted on blood pressure medication (like Amlodipine) depending on your BP readings. Please return to emergency if symptoms worsen. Diet Continue normal diet: Yes Recommended Diet: Heart Healthy Activity Full Activity/No Limits: No Activity Self Limited: Yes Acute Coronary Syndrome Inclusion Criteria At DC or during hospital stay patient has or had the following: ACS DIAGNOSIS No Discharge Core Measures Meds if any: Prescribed or Continued at Discharge Meds if any: NOT Prescribed or Continued at Discharge Congestive Heart Failure Inclusion Criteria At DC or during hospital stay patient has or had the following: CHF DIAGNOSIS No Discharge Core Measures Meds if any: Prescribed or Continued at Discharge Meds if any: NOT Prescribed or Continued at Discharge Cerebrovascular accident Inclusion Criteria At DC or during hospital stay patient has or had the following: CVA/TIA Diagnosis No Discharge Core Measures Meds if any: Prescribed or Continued at Discharge Meds if any: NOT Prescribed or Continued at Discharge Venous thromboembolism Inclusion Criteria VTE Diagnosis No VTE Type NONE VTE Confirmed by (Test) NONE Discharge Core Measures - Per Current guidelines, there needs to be overlap - treatment for the first 5 days of Warfarin therapy. - If discharged on Warfarin prior to 5 days of - overlap therapy, the patient will need to be - assessed for post discharge needs including - *Post discharge parental anticoagulation - *Warfarin and/or parental anticoagulation education - *Follow up date to check INR post discharge At least 5 days overlap therapy as Inpatient No Meds if any: Prescribed or Continued at Discharge Note: Overlap Therapy is Warfarin and Anticoagulant Meds if any: NOT Prescribed or Continued at Discharge
[2017-01-26 15:08] VITALS: BP 140/72
--- NOTE | 2017-01-28 16:20 | Discharge Summary ---
Visit Information Visit Dates Admission Date: 01/23/17 Discharge Date: 01/26/17 Hospital Course Course Attending Physician: MAYO MELÉNDEZ MD Primary Care Physician: KIKE HENRY,[facility] Course: Ms. Rivers is 61-year-old female with past medical history of hypertension and hyperlipidemia, presented with chief complaint of nausea, vomiting, fatigue and low appetite started 10 days prior to admission and was interfering with her daily activity. She denied any fever, chills, shortness of breath, cough, chest pain, palpitation, headache, abdominal pain, melena, urinary symptoms, any changes in bowel movements, any sick contacts, eating anything unusual, any travels. In the emergency room she was found to be hypotensive down to 72/60. She was started on IV fluids. Blood pressure eventually started normalizing. Vital signs at ER on admission : 105/59 pulse 92 room air saturation 98 Pertinent data on admission : BUN 121 creatinine 12.9 ( no known kidney dysfunction) initial lactic acid 4.8 follow-up 2.1 Lipase 508 amylase 92 WBC 7.7 no left shift or bandemia, hemoglobin 15.2, hematocrit 45.3 Patient was admitted initially to ICU, after blood pressure and kidney function with stabilized she was transferred to general med floor for farther management. Problem list Acute renal failure due to dehydration * Most likely due to dehydration: Prerenal CINDA, patient had history of decreased oral intake prior admission in addition to medication hisotry (recently was started on lisinopril, history of recent NSAIDs consumption) * On admission BUN/creatinine 121/12.9 * IV fluid resuscitation, BUN and creatinine improved to 23/0.8 prior to discharge * Patient presented with hypernatremia, hypokalemia, hypomagnesemia, hypokalemia , lactic acidosis (in the setting of hypotension), hyperchloremia metabolic acidosis in setting of kidney injury, all were corrected prior to discharge with IV fluid D5W, 3 doses of sodium bicarbonate and electrolyte supplementation * Magnesium chloride 71.5 mg by mouth daily was prescribed on discharge for persistent hypo-magnesemia, will continue statin and acetaminophen. Will stop lisnopril and hydrochlorothiazide * Nephrology consultation was obtained, recommendation to avoid JOSE inhibitor and hydrochlorothiazide and any nephrotoxin drug * Questionable history of adrenal insufficiency, a.m. cortisol within normal History of hypertension and presented with hypotension due to dehydration * Blood pressure medication was held on admission, blood pressure was maintained within normal range without any medication during hospital stay, patient was instructed to follow up with her primary care physician within 1 week after discharge for hypertension medication determination * Per nephrology consultation, patient may benefit from none renal hypertensive medication such as amlodipine EtOH use and elevated lipase * Patient scored low on CIWA score, Ativan 1 mg by mouth when necessary was on board, continue thiamine multivitamin and folic acid Left lower lobe lung nodule. * CT abdomen and pelvis on admission revealed left lower lobe 0.03 cm noncalcified nodule, for outpatient follow-up DVT prophylaxis:Heparin 5000 U Q8 FC Consultation nephrology Imaging CT abdomen and pelvis without contrast 01/23/17 IMPRESSION: 1. No evidence of urolithiasis or urinary tract obstruction. 2. There is a 4.3 x 4.5 x 4.7 cm dermoid cyst of the left ovary. 3. Small, 0.3 cm nodule within the left lower lobe. Renal ultrasound RIGHT KIDNEY: 9.1 x 5 x 4.3 cm (SAG x AP x TRV). The kidney is normal in size, contour, and echogenicity. Renal cortical thickness is normal. No calculi or focal parenchymal lesions. No hydronephrosis. LEFT KIDNEY: 9.7 x 5.1 x 4.7 cm (SAG x AP x TRV). The kidney is normal in size, contour, and echogenicity. Renal cortical thickness is normal. No calculi or focal parenchymal lesions. No hydronephrosis. BLADDER: Partially distended. Bilateral ureteral jets are demonstrated. Prevoid bladder volume is 62 mL. IMPRESSION: Unremarkable appearance of the kidneys.. Allergies: Coded Allergies: No Known Allergies (01/23/17) Disposition Summary Disposition Principal Diagnosis: Acute kidney injury Additional Diagnosis: Electrolyte disturbance Discharge Disposition: home or self care Discharge Instructions General Discharge Information Code Status: Full Code Patient's Diet: Regular diet Patient's Activity: As tolerated Follow-Up Instructions/Appts: Please stop all medications for BLOOD PRESSURE ONLY for now. Have your blood pressure checked regularly and visit your primary care physician within a week. You may be restarted on blood pressure medication (like Amlodipine) depending on your BP readings. Please return to emergency if symptoms worsen. Medications at Discharge Discharge Medications: Stop taking the following medications: Lisinopril/Hydrochlorothiazide (Lisinopril-Hctz 10-12.5 MG Tab) 10 MG-12.5 MG TABLET ORAL DAILY Qty = 90 Continue taking these medications: Atorvastatin Calcium (Atorvastatin Calcium) 20 MG TABLET 1 Tablet ORAL DAILY Qty = 90 Comments: NOT GIVEN Acetaminophen (Mapap) (Unknown Strength) CAPSULE Unknown Dose ORAL GIVE ONCE Comments: NOT GIVEN Start taking the following new medications: Magnesium Chloride (Slow-Mag) 71.5 MG TABLET.DR 1 Tablet ORAL DAILY Qty = 30 No Refills Comments: Last Taken:01/26/17 Time:2 PM Copies To: RABIA HENRY,[facility]
== END 2017-01-26 15:15 | DRG 683 ==
LOC: ENRESERVDT → ENRESERVTM → ERH 14:20 → ERHI 18:52 → 2NA 18:52 → CRI 18:52 → 2NA 20:43 → CRI 20:44 → 2NA 01-24 18:33
PROVIDERS: Dermatology; Physician Assistant; ADMIT Internal Medicine
DX: N17.9 Acute kidney failure, unspecified (principal); E87.3 Alkalosis; E87.2 Acidosis; I95.9 Hypotension, unspecified; E83.39 Other disorders of phosphorus metabolism; E27.40 Unspecified adrenocortical insufficiency; E83.42 Hypomagnesemia; E86.0 Dehydration; E78.5 Hyperlipidemia, unspecified; Z87.891 Personal history of nicotine dependence; R91.1 Solitary pulmonary nodule; A08.4 Viral intestinal infection, unspecified; E87.6 Hypokalemia
CPT/HCPCS: 2NASP; 84133; 84300; CCU; 36415; 74176; 76775; 81001; 82436; 82570; 87086; 93005; 93010; 96360; 96361; 99291; J1644; J3490; J7060